=== PATIENT | male | born 2000 | race Two or more races ===

== ENCOUNTER 2023-08-02 06:51 | Day surgery (SDC) | payer MEDICAID, SELFPAY ==
[2023-08-02] VITALS (9 sets, daily range): BP systolic 123–151; BP diastolic 61–85; PULSE 64–83; RESP 16; TEMP 36.7–36.9; O2SAT 98–100; BMI 21.6
--- OUTSIDE RECORDS SUMMARY | 2023-08-02 07:00 | XMS RPT_ITS | CCD ---
Author Name Unknown Address [address] [place] [address] Organization [facility] Care Team Providers Care Signwriter Name Role Phone Unavailable Primary Care Provider Lanny MCGOVERNAREDEEPAK TRUJILLO, [facility] Primary Care Physician DRU DANIELLE Attending Lanny SORENSEN PA-C, [facility] Primary Care Unavailab Amador TRUJILLO, [facility] Primary Care Unavailab Arron EVERETT, DAILY Attending Unavailable MAIKEL EVERETT, DAILY Attending Unavailable EDU TRUJILLO, [facility] Primary Care Danika Heller MD, DAILY Consulting Unavailable OMAR GRANDA Attending Unavailable FROILANAREDEEPAK TRUJILLO, [facility] Primary Care Unavailab le Medications Current Medications Medication Drug Class(es) Dates Sig (Normalized) Sig (Original) acetaminophen 325 mg / oxyCODONE hydrochloride 5 mg oral tablet (2 sources) Opioid Agonist Start: 05-31-2023 take 1 tablet by mouth every six hours as needed for pain acetaminophen-oxy CODONE 325 mg-5 mg oral tablet TAKE 1 TABLET BY MOUTH EVERY 6 HOURS NEEDED FOR PAIN FOR 3 DAYS Start Date: 05/31/23 Status: Ordered Problems Problem Classification Problem Date Documented Date Episodic/Chronic Abdominal pain (2 sources) Abdominal pain 05-28-2023 Episodic Biliary tract disease (3 sources) Calculus of bile duct; Translations: [Calculus of bile duct without cholangitis or cholecystitis without obstruction] Onset: 05-25-2023 Episodic Results Test Name Value Interpretation Reference Range Facil ity Vital Signs Date Time Vital Sign Value Performing Clinician Sajan lara 07-08-2023 13:16-0500 Body height 177.8 cm DAILY KO MD [facility] 07-08-2023 13:16-0500 Body weight 70.5 kg DAILY KO MD [facility] 05-25-2023 14:38-0500 Diastolic Blood Pressure Non-Invasive 78 mm[Hg] DR OMAR GRANDA MD [facility] 05-25-2023 14:38-0500 Heart rate 78 /min DR OMAR GRANDA MD [facility] 05-25-2023 14:38-0500 Respiratory rate 20 /min DR OMAR GRANDA MD [facility] 05-25-2023 14:38-0500 Systolic Blood Pressure Non-Invasive 142 mm[Hg] DR OMAR GRANDA MD [facility] 05-25-2023 10:19-0500 Body height 165.[address] OMAR GRANDA MD [facility] 05-25-2023 10:19-0500 Body temperature 98.42 [degF] DR OMAR GRANDA MD [facility] 05-25-2023 10:19-0500 Body weight 77.[address] OMAR GRANDA MD [facility] 05-25-2023 10:19-0500 Diastolic Blood Pressure Non-Invasive 95 mm[Hg] DR OMAR GRANDA MD [facility] 05-25-2023 10:19-0500 Heart rate 112 /min DR OMAR GRANDA MD [facility] 05-25-2023 10:19-0500 Respiratory rate 20 /min DR OMAR GRANDA MD [facility] 05-25-2023 10:19-0500 Systolic Blood Pressure Non-Invasive 138 mm[Hg] DR OMAR GRANDA MD [facility] Encounters Encounter Date Encounter Type Care Provider Facility Start: 07-09-2023 ambulatory RYAN Larson acility:B Start: 07-08-2023 End: 07-09-2023 ambulatory DAILY KO MD Facility:B Start: 07-08-2023 End: 07-08-2023 Admission to establishment DAILY KO MD [facility] Start: 06-08-2023 End: 06-09-2023 ambulatory 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 Facility:B Start: 06-08-2023 End: 06-08-2023 Patient encounter procedure 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 [facility] Start: 05-25-2023 End: 05-25-2023 Emergency department patient visit DAILY KO MD Facility:B Start: 05-25-2023 End: 05-25-2023 Emergency department patient visit DR OMAR GRANDA MD [facility] Start: 04-22-2020 End: 04-22-2020 Telephone encounter Chloe Zimmerman Work Phone: [facility] Procedures Date Procedure Procedure Detail Performing Clinician Inguinal hernia (disorder) D R OMAR GRANDA MD Immunizations Immunization Date Immunization Notes Care Provider Fa cili 02-06-2021 SARS-CoV-2 (COVID-19 ) [id number] OMAR GRANDA MD [facility] Payers Date Payer Category Payer Self-pay 2023 Unknown [id number] 2002 Unknown [id number] 2002 Unknown [id number] 2002 Unknown [id number] 2002 Unknown [id number] Social History Date Type Detail Facility Tobacco smoking stat [facility] Unknown if ever smoked [facility] Sex Assigned At Not on file [facility] Start: 01-22-2023 End: 06-17-2023 Tobacco smoking status Never smoked tobacco (finding) [facility] Sex Assigned At Male [facility] Functional Status Date Assessment Result Facility 07-08-2023 Functional Status Sensory Deficits None A [facility] 05-25-2023 Functional Status Independent [facility] 05-25-2023 Functional Status Standard Safet y ID band on, Call device within reach, Bed in low position, Wheels locked [facility] Mental Status Date Assessment Result Facility 05-25-2023 Mental Status Orientation Oriented x 4 [facility] Clinical Note 06-08-2023 Note Date & Type Note Facility 06-08-2023 Note ORIGINAL EXAMINATION: HIDA108/09/2022 12:38 pm TECHNIQUE: Approximately 3.9 millicuries Tc99m Mebrofenin was administered IV. Then, dynamic images of the abdomen were obtained in the anterior projection for 60 mins. Slow infusion of 1.4 mcg cholecystokinin was administered intravenously over 30 mins. Images were obtained in the anterior projection and regions of interest were drawn around the gallbladder and ejection fraction was calculated. COMPARISON: Ultrasound abdomen 05/25/2023 HISTORY: ORDERING SYSTEM PROVIDED HISTORY: Reason for Exam: ruq/epigastric pain with nausea x4 weeks. Pain is worse after eating. FINDINGS: Prompt, homogenous uptake by the liver is noted with normal appearance of radiotracer excretion into the biliary system. Clearance of blood pool activity appears appropriate. Gallbladder and small bowel are visualized in appropriate sequence and time. Gallbladder ejection fraction is 30%. Normal value is >35% for CCK protocol. IMPRESSION: 1. Abnormal gallbladder ejection fraction of 30 % could be seen with biliary dyskinesia or chronic cholecystitis. 2. Satisfactory hepatocellular function and patency of the cystic and common ducts. I have personally reviewed the images of this examination and agree with the resident's finding and interpretation. Interpreted by: Chelsy Benson Preliminary Report By: Nicci Monk Electronically signed By Chelsy Benson Dictated Date: 06/08/2023 1:51:16 PM Prelim Date: 06/08/2023 5:48:59 PM Sign Date: 06/08/2023 5:48:59 PM Ordering Provider: [facility] Discharge instructions 05-25-2023 Note Date & Type Note Facility 05-25-2023 Hospital Discharg e instructions Patient Education 05/25/2023 14:33:25 Diet, Marin (Adult) Marin Diet Your healthcare provider may recommend a bland diet if you have an upset stomach. It consists of foods that are mild and easy to digest. It is better to eat small frequent meals rather than 3 large meals a day. Beverages OK: Fruit juices, non-caffeinated teas and coffee, non-carbonated luz Avoid: Carbonated beverage, caffeinated tea and coffee, all alcoholic beverages Bread OK: Refined white, wheat or rye bread, salvador or soda crackers, [place] toast, plain rolls, bagels Avoid: Whole-grain bread Cereal OK: Refined cereals: cooked or ready to eat Avoid: Whole-grain cereals and granola, or those containing bran, seeds or nuts Desserts OK: Peanut butter and all others except those to avoid Avoid: Chocolate, cocoa, coconut, popcorn, nuts, seeds, jam, marmalade Fruits OK: Canned, cooked, frozen or fresh fruits without seeds or tough skin Avoid: Olives, skin and seeds of fruit, dried fruit Meats OK: All fresh or preserved meat, fish and fowl Avoid: Any that are prepared with those spices to avoid Cheese and eggs OK: Eggs, cottage cheese, cream cheese, other cheeses Avoid: All cheeses made with those spices to avoid Potatoes and pasta OK: Potato, rice, macaroni, noodles, spaghetti Avoid: None Soups OK: All soups without heavy seasoning Avoid: Soups made with those spices to avoid Vegetables OK: Canned, cooked, fresh or frozen mildly flavored vegetables without seeds, skins or coarse fiber Avoid: Vegetables prepared with those spices to avoid ; skin and seeds of vegetables and those with coarse fiber, broccoli, cabbage, cauliflower, cucumber, green peppers, and corn Spices OK: Salt, lemon and limejuice, vinegar, all extracts, prasanna, cinnamon, thyme, mace, allspice, paprika Avoid: [place] powder, cloves, pepper, seed spices, garlic, gravy pickles, highly seasoned salad dressings [phone] [employer]. [address] [place] [address]. All rights reserved. This information is not intended as a substitute for professional medical care. Always follow your healthcare professional's instructions. 05/25/2023 14:32:53 Diet, Marin (Adult) Marin Diet Your healthcare provider may recommend a bland diet if you have an upset stomach. It consists of foods that are mild and easy to digest. It is better to eat small frequent meals rather than 3 large meals a day. Beverages OK: Fruit juices, non-caffeinated teas and coffee, non-carbonated luz Avoid: Carbonated beverage, caffeinated tea and coffee, all alcoholic beverages Bread OK: Refined white, wheat or rye bread, salvador or soda crackers, [place] toast, plain rolls, bagels Avoid: Whole-grain bread Cereal OK: Refined cereals: cooked or ready to eat Avoid: Whole-grain cereals and granola, or those containing bran, seeds or nuts Desserts OK: Peanut butter and all others except those to avoid Avoid: Chocolate, cocoa, coconut, popcorn, nuts, seeds, jam, marmalade Fruits OK: Canned, cooked, frozen or fresh fruits without seeds or tough skin Avoid: Olives, skin and seeds of fruit, dried fruit Meats OK: All fresh or preserved meat, fish and fowl Avoid: Any that are prepared with those spices to avoid Cheese and eggs OK: Eggs, cottage cheese, cream cheese, other cheeses Avoid: All cheeses made with those spices to avoid Potatoes and pasta OK: Potato, rice, macaroni, noodles, spaghetti Avoid: None Soups OK: All soups without heavy seasoning Avoid: Soups made with those spices to avoid Vegetables OK: Canned, cooked, fresh or frozen mildly flavored vegetables without seeds, skins or coarse fiber Avoid: Vegetables prepared with those spices to avoid ; skin and seeds of vegetables and those with coarse fiber, broccoli, cabbage, cauliflower, cucumber, green peppers, and corn Spices OK: Salt, lemon and limejuice, vinegar, all extracts, prasanna, cinnamon, thyme, mace, allspice, paprika Avoid: [place] powder, cloves, pepper, seed spices, garlic, gravy pickles, highly seasoned salad dressings [phone] [employer] [place] [address]. All rights reserved. This information is not intended as a substitute for professional medical care. Always follow your healthcare professional's instructions. 05/25/2023 14:31:25 Gallstones with Biliary Colic Gallstones with Biliary Colic Your abdominal pain due to irritation and spasm of the gallbladder. This is called biliary colic. The gallbladder is a small sac under the liver, which stores and releases a bile. Bile is a fluid made in the liver that aids in the digestion of fat. A collection of crystals may form stones inside the gallbladder (gallstones). Gallstones can cause the gallbladder to spasm. If they block the duct out of the gallbladder, they can cause pain and even an infection. A number of factors increase the risk for having gallstones: Being female Being severely overweight (obese) Older age Losing or gaining weight quickly Eating a high-calorie diet Being Taking hormone therapy Having diabetes Home care Rest in bed. Drink only clear liquids until you feel better. You may have been prescribed medicine for pain or nausea. Take these as directed. Fat in your diet makes the gallbladder contract and may cause increased pain. Don't eat foods that are high in fat (such as full-fat dairy, fried foods, and fatty meats) for at least 2 days. If you are overweight, talk to your healthcare provider about losing weight. Follow-up care Follow up with your healthcare provider or as advised. There is a chance that you will have another episode of pain from your gallstones at some point. Removal of the gallbladder is an option to prevent this. Talk with your healthcare provider about your treatment options. When to seek medical advice Call your healthcare provider if any of the following occur: Worsening pain or pain lasting for longer than 6 hours Pain moving to the right lower belly Repeated vomiting Swollen belly Fever of 100.4 F (38 C) or higher, or as directed by your healthcare provider Very dark urine, light colored stools, or yellow color of the skin or eyes Chest, arm, back, neck or jaw pain [phone] [employer] [address] [place] [address]. All rights reserved. This information is not intended as a substitute for professional medical care. Always follow your healthcare professional's instructions. Follow Up Care 05/25/2023 10:10:49 With:DAILY KO Address: [address] [place] [phone] Business (1) When:05/27/2023 13:00:00 With:RYAN SORENSEN PA-C Address: [address] [place] [phone] When:2-4 days [facility] Clinical Note 05-25-2023 Note Date & Type Note Facility 05-25-2023 Note Discharge Instructions Thank you for allowing [facility] to assist you with your healthcare needs. The following is important discharge information regarding your hospital visit. Diagnosis from Today's Visit Abdominal pain Biliary colic What to Do Next Instructions from Your Care Team No qualifying data available. Post Acute Orders No qualifying data available. You Need to Schedule the Following Appointments Follow Up with DAILY KO When 05/27/2023 01:00 PM EST Where: [address] [place] [phone] Business (1) Follow Up with RYAN SORENSEN PA-C When Within 2-4 days Where: [address] [place] [id number] [phone] Allergies No Known Medication Allergies Medications Please ask your primary doctor or pharmacist before taking any other medication not listed, including over the counter drugs, herbal medications, vitamins and or supplements as they may interact with your home medications. What How Much When Why Instructions Last Dose New acetaminophen-oxyCODONE (Percocet 5 mg-325 mg oral tablet) 1 tab(s) by mouth Every 6 hours as needed for for pain Biliary colic Duration: 3 Days Printed Prescription New ondansetron (ondansetron 4 mg oral tablet, disintegrating) 1 tab(s) by mouth Every 6 hours Duration: 3 Days Printed Prescription Please take this list to your next doctor s visit. Bring all medications you take, including over the counter medications, herbals and other supplements with you to your doctor s visit. Patients and families are reminded to discard old lists and to update any records with all medication providers or retail pharmacies. Medication Leaflets acetaminophen and oxycodone (a SEET a MIN oh fen and OX i KOE done) Endocet 10/325, Endocet 2.5/325, Endocet 5/325, Endocet 7.5/325, Nalocet, Percocet, Prolate What is the most important information I should know about acetaminophen and oxycodone? MISUSE OF OPIOID MEDICINE CAN CAUSE ADDICTION, OVERDOSE, OR . Keep the medication in a place where others cannot get to it. Taking opioid medicine during may cause life-threatening withdrawal symptoms in the . Fatal side effects can occur if you use opioid medicine with alcohol, or with other drugs that cause drowsiness or slow your breathing. Stop taking this medicine and call your doctor right away if you have skin redness or a rash that spreads and causes blistering and peeling. What is acetaminophen and oxycodone? Acetaminophen and oxycodone is a combination medicine used to relieve moderate to severe pain. Acetaminophen and oxycodone contains an opioide medicine and may be habit-forming. Acetaminophen and oxycodone may also be used for purposes not listed in this medication guide. What should I discuss with my healthcare provider before taking acetaminophen and oxycodone? You should not use this medicine if you are allergic to acetaminophen or oxycodone, or if you have: severe asthma or breathing problems; or a blockage in your stomach or intestines. Tell your doctor if you have ever had: breathing problems, sleep apnea; liver disease; a drug or alcohol addiction; kidney disease; a head injury or seizures; urination problems; or problems with your thyroid, pancreas, or gallbladder. If you use opioid medicine while you are , your baby could become dependent on the drug. This can cause life-threatening withdrawal symptoms in the baby after it is born. Babies born dependent on opioids may need medical treatment for several weeks. Ask a doctor before using opioid medicine if you are . Tell your doctor if you notice severe drowsiness or slow breathing in the nursing baby. How should I take acetaminophen and oxycodone? Follow all directions on your prescription label. Never take this medicine in larger amounts, or for longer than prescribed. An overdose can damage your liver or cause . Tell your doctor if you feel an increased urge to use more of this medicine. Never share opioid medicine with another person, especially someone with a history of drug abuse or addiction. MISUSE CAN CAUSE ADDICTION, OVERDOSE, OR . Keep the medicine in a place where others cannot get to it. Selling or giving away opioid medicine is against the law. Measure liquid medicine carefully. Use the dosing syringe provided, or use a medicine dose-measuring device (not a kitchen spoon). If you need surgery or medical tests, tell the doctor ahead of time that you are using this medicine. You should not stop using this medicine suddenly. Follow your doctor's instructions about tapering your dose. Store at room temperature away from moisture and heat. Keep track of your medicine. You should be aware if anyone is using it improperly or without a prescription. Do not keep leftover opioid medication. Just one dose can cause in someone using this medicine accidentally or improperly. Ask your pharmacist where to locate a drug take-back disposal program. If there is no take-back program, flush the unused medicine down the toilet. What happens if I miss a dose? Since this medicine is used for pain, you are not likely to miss a dose. Skip any missed dose if it is almost time for your next dose. Do not use two doses at one time. What happens if I overdose? Seek emergency medical attention or call the Poison Help line at . An overdose of this medicine can be fatal, especially in a child or other person using the medicine without a prescription. Overdose symptoms may include nausea, vomiting, sweating, severe drowsiness, pinpoint pupils, slow breathing, or no breathing. Your doctor may recommend you get naloxone (a medicine to reverse an opioid overdose) and keep it with you at all times. A person caring for you can give the naloxone if you stop breathing or don't wake up. Your caregiver must still get emergency medical help and may need to perform CPR (cardiopulmonary resuscitation) on you while waiting for help to arrive. Anyone can buy naloxone from a pharmacy or local health department. Make sure any person caring for you knows where you keep naloxone and how to use it. What should I avoid while taking acetaminophen and oxycodone? Avoid driving or operating machinery until you know how this medicine will affect you. Dizziness or drowsiness can cause falls, accidents, or severe injuries. Do not drink alcohol. Dangerous side effects or could occur. Ask a doctor or pharmacist before using any other medicine that may contain acetaminophen (sometimes abbreviated as APAP). Taking certain medications together can lead to a fatal overdose. What are the possible side effects of acetaminophen and oxycodone? Get emergency medical help if you have signs of an allergic reaction: hives; difficulty breathing; swelling of your face, lips, tongue, or throat. Opioid medicine can slow or stop your breathing, and may occur. A person caring for you should give naloxone and/or seek emergency medical attention if you have slow breathing with long pauses, blue colored lips, or if you are hard to wake up. In rare cases, acetaminophen may cause a severe skin reaction that can be fatal. This could occur even if you have taken acetaminophen in the past and had no reaction. Stop taking this medicine and call your doctor right away if you have skin redness or a rash that spreads and causes blistering and peeling. Call your doctor at once if you have: noisy breathing, sighing, shallow breathing, breathing that stops; a light-headed feeling, like you might pass out; weakness, tiredness, fever, unusual bruising or bleeding; confusion, unusual thoughts or behavior; problems with urination; liver problems--nausea, upper stomach pain, tiredness, loss of appetite, dark urine, arben-colored stools, jaundice (yellowing of the skin or eyes); low cortisol levels-- nausea, vomiting, loss of appetite, dizziness, worsening tiredness or weakness; or high levels of serotonin in the body--agitation, hallucinations, fever, sweating, shivering, fast heart rate, muscle stiffness, twitching, loss of coordination, nausea, vomiting, diarrhea. Serious breathing problems may be more likely in older adults and in those who are debilitated or have wasting syndrome or chronic breathing disorders. Common side effects include: dizziness, drowsiness, feeling tired; feelings of extreme happiness or sadness; nausea, vomiting, stomach pain; constipation; or headache. This is not a complete list of side effects and others may occur. Call your doctor for medical advice about side effects. You may report side effects to FDA at 0-064-CYT-7876. What other drugs will affect acetaminophen and oxycodone? You may have breathing problems or withdrawal symptoms if you start or stop taking certain other medicines. Tell your doctor if you also use an antibiotic, antifungal medication, heart or blood pressure medication, seizure medication, or medicine to treat HIV or hepatitis C. Opioid medication can interact with many other drugs and cause dangerous side effects or . Be sure your doctor knows if you also use: cold or allergy medicines, bronchodilator asthma/COPD medication, or a diuretic ('water pill'); medicines for motion sickness, irritable bowel syndrome, or overactive bladder; other opioids--opioid pain medicine or prescription cough medicine; a sedative like Valium--diazepam, alprazolam, lorazepam, Xanax, Klonopin, Versed, and others; drugs that make you sleepy or slow your breathing--a sleeping pill, muscle relaxer, medicine to treat mood disorders or mental illness; drugs that affect serotonin levels in your body--a stimulant, or medicine for depression, Parkinson's disease, migraine headaches, serious infections, or nausea and vomiting. This list is not complete. Other drugs may affect acetaminophen and oxycodone, including prescription and tfco-ieq-xqekrew medicines, vitamins, and herbal products. Not all possible interactions are listed here. Where can I get more information? Your doctor or pharmacist can provide more information about acetaminophen and oxycodone. Remember, keep this and all other medicines out of the reach of children, never share your medicines with others, and use this medication only for the indication prescribed. Every effort has been made to ensure that the information provided by [employer]') is accurate, up-to-date, and complete, but no guarantee is made to that effect. Drug information contained herein may be time sensitive. R2G information has been compiled for use by healthcare practitioners and consumers in the [place] and therefore [employer] does not warrant that uses outside of the [place] are appropriate, unless specifically indicated otherwise. [employer] drug information does not endorse drugs, diagnose patients or recommend therapy. [employer] drug information is an informational resource designed to assist licensed healthcare practitioners in caring for their patients and/or to serve consumers viewing this service as a supplement to, and not a substitute for, the expertise, skill, knowledge and judgment of healthcare practitioners. The absence of a warning for a given drug or drug combination in no way should be construed to indicate that the drug or drug combination is safe, effective or appropriate for any given patient. [employer] does not assume any responsibility for any aspect of healthcare administered with the aid of information [employer] provides. The information contained herein is not intended to cover all possible uses, directions, precautions, warnings, drug interactions, allergic reactions, or adverse effects. If you have questions about the drugs you are taking, check with your doctor, nurse or pharmacist. Copyright 5368-4236 Transfer [employer]. Version: 22.. Revision Date: 01/14/2023. ondansetron (oral) (on DANO se dickson) What is the most important information I should know about ondansetron? You should not use ondansetron if you are also using apomorphine (Apokyn). What is ondansetron? Ondansetron blocks the actions of chemicals in the body that can trigger nausea and vomiting. Ondansetron is used to prevent nausea and vomiting that may be caused by surgery, cancer chemotherapy, or radiation treatment. Ondansetron may be used for purposes not listed in this medication guide. What should I discuss with my health care provider before taking ondansetron? You should not use ondansetron if: you are also using apomorphine (Apokyn); or you are allergic to ondansetron or similar medicines (dolasetron, granisetron, palonosetron). To make sure ondansetron is safe for you, tell your doctor if you have: liver disease; an electrolyte imbalance (such as low levels of potassium or magnesium in your blood); congestive heart failure, slow heartbeats; a personal or family history of long QT syndrome; or a blockage in your digestive tract (stomach or intestines). Ondansetron is not expected to harm an unborn baby. Tell your doctor if you are . It is not known whether ondansetron passes into breast milk or if it could harm a nursing baby. Tell your doctor if you are breast-feeding a baby. Ondansetron is not approved for use by anyone younger than 4 years old. Ondansetron orally disintegrating tablets may contain phenylalanine. Tell your doctor if you have phenylketonuria (PKU). How should I take ondansetron? Follow all directions on your prescription label. Do not take this medicine in larger or smaller amounts or for longer than recommended. Ondansetron can be taken with or without food. The first dose of ondansetron is usually taken before the start of your surgery, chemotherapy, or radiation treatment. Follow your doctor's dosing instructions very carefully. Take the ondansetron regular tablet with a full glass of water. To take the orally disintegrating tablet (Zofran ODT): Keep the tablet in its blister pack until you are ready to take it. Open the package and peel back the foil. Do not push a tablet through the foil or you may damage the tablet. Use dry hands to remove the tablet and place it in your mouth. Do not swallow the tablet whole. Allow it to dissolve in your mouth without chewing. Swallow several times as the tablet dissolves. To use ondansetron oral soluble film (strip) (Zuplenz): Keep the strip in the foil pouch until you are ready to use the medicine. Using dry hands, remove the strip and place it on your tongue. It will begin to dissolve right away. Do not swallow the strip whole. Allow it to dissolve in your mouth without chewing. Swallow several times after the strip dissolves. If desired, you may drink liquid to help swallow the dissolved strip. Wash your hands after using Zuplenz. Measure liquid medicine with the dosing syringe provided, or with a special dose-measuring spoon or medicine cup. If you do not have a dose-measuring device, ask your pharmacist for one. Store at room temperature away from moisture, heat, and light. Store liquid medicine in an upright position. What happens if I miss a dose? Take the missed dose as soon as you remember. Skip the missed dose if it is almost time for your next scheduled dose. Do not take extra medicine to make up the missed dose. What happens if I overdose? Seek emergency medical attention or call the Poison Help line at . Overdose symptoms may include sudden loss of vision, severe constipation, feeling light-headed, or fainting. What should I avoid while taking ondansetron? Ondansetron may impair your thinking or reactions. Be careful if you drive or do anything that requires you to be alert. What are the possible side effects of ondansetron? Get emergency medical help if you have signs of an allergic reaction: rash, hives; fever, chills, difficult breathing; swelling of your face, lips, tongue, or throat. Call your doctor at once if you have: severe constipation, stomach pain, or bloating; headache with chest pain and severe dizziness, fainting, fast or pounding heartbeats; fast or pounding heartbeats; jaundice (yellowing of the skin or eyes); blurred vision or temporary vision loss (lasting from only a few minutes to several hours); high levels of serotonin in the body--agitation, hallucinations, fever, fast heart rate, overactive reflexes, nausea, vomiting, diarrhea, loss of coordination, fainting. Common side effects may include: diarrhea or constipation; headache; drowsiness; or tired feeling. This is not a complete list of side effects and others may occur. Call your doctor for medical advice about side effects. You may report side effects to FDA at 2-827-MMT-0976. What other drugs will affect ondansetron? Ondansetron can cause a serious heart problem, especially if you use certain medicines at the same time, including antibiotics, antidepressants, heart rhythm medicine, antipsychotic medicines, and medicines to treat cancer, malaria, HIV or AIDS. Tell your doctor about all medicines you use, and those you start or stop using during your treatment with ondansetron. Taking ondansetron while you are using certain other medicines can cause high levels of serotonin to build up in your body, a condition called 'serotonin syndrome,' which can be fatal. Tell your doctor if you also use: medicine to treat depression; medicine to treat a psychiatric disorder; a narcotic (opioid) medication; or medicine to prevent nausea and vomiting. This list is not complete and many other drugs can interact with ondansetron. This includes prescription and [id number]-uhdszkp medicines, vitamins, and herbal products. Give a list of all your medicines to any healthcare provider who treats you. Where can I get more information? Your pharmacist can provide more information about ondansetron. Remember, keep this and all other medicines out of the reach of children, never share your medicines with others, and use this medication only for the indication prescribed. Every effort has been made to ensure that the information provided by [employer]. ('[employer]') is accurate, up-to-date, and complete, but no guarantee is made to that effect. Drug information contained herein may be time sensitive. [employer] information has been compiled for use by healthcare practitioners and consumers in the [place] and therefore [employer] does not warrant that uses outside of the [place] are appropriate, unless specifically indicated otherwise. [employer] drug information does not endorse drugs, diagnose patients or recommend therapy. [employer] drug information is an informational resource designed to assist licensed healthcare practitioners in caring for their patients and/or to serve consumers viewing this service as a supplement to, and not a substitute for, the expertise, skill, knowledge and judgment of healthcare practitioners. The absence of a warning for a given drug or drug combination in no way should be construed to indicate that the drug or drug combination is safe, effective or appropriate for any given patient. [employer] does not assume any responsibility for any aspect of healthcare administered with the aid of information [employer] provides. The information contained herein is not intended to cover all possible uses, directions, precautions, warnings, drug interactions, allergic reactions, or adverse effects. If you have questions about the drugs you are taking, check with your doctor, nurse or pharmacist. Copyright 5893-8656 Transfer [employer]. Version: 16.. Revision Date: 01/14/2023. Education Materials [place] Diet Your healthcare provider may recommend a bland diet if you have an upset stomach. It consists of foods that are mild and easy to digest. It is better to eat small frequent meals rather than 3 large meals a day. Beverages OK: Fruit juices, non-caffeinated teas and coffee, non-carbonated luz Avoid: Carbonated beverage, caffeinated tea and coffee, all alcoholic beverages Bread OK: Refined white, wheat or rye bread, salvador or soda crackers, Viri toast, plain rolls, bagels Avoid: Whole-grain bread Cereal OK: Refined cereals: cooked or ready to eat Avoid: Whole-grain cereals and granola, or those containing bran, seeds or nuts Desserts OK: Peanut butter and all others except those to avoid Avoid: Chocolate, cocoa, coconut, popcorn, nuts, seeds, jam, marmalade Fruits OK: Canned, cooked, frozen or fresh fruits without seeds or tough skin Avoid: Olives, skin and seeds of fruit, dried fruit Meats OK: All fresh or preserved meat, fish and fowl Avoid: Any that are prepared with those spices to avoid Cheese and eggs OK: Eggs, cottage cheese, cream cheese, other cheeses Avoid: All cheeses made with those spices to avoid Potatoes and pasta OK: Potato, rice, macaroni, noodles, spaghetti Avoid: None Soups OK: All soups without heavy seasoning Avoid: Soups made with those spices to avoid Vegetables OK: Canned, cooked, fresh or frozen mildly flavored vegetables without seeds, skins or coarse fiber Avoid: Vegetables prepared with those spices to avoid ; skin and seeds of vegetables and those with coarse fiber, broccoli, cabbage, cauliflower, cucumber, green peppers, and corn Spices OK: Salt, lemon and limejuice, vinegar, all extracts, prasanna, cinnamon, thyme, mace, allspice, paprika Avoid: Hornsby powder, cloves, pepper, seed spices, garlic, gravy pickles, highly seasoned salad dressings 8512-[address] [employer] [place] [address]. All rights reserved. This information is not intended as a substitute for professional medical care. Always follow your healthcare professional's instructions. [place] Diet Your healthcare provider may recommend a bland diet if you have an upset stomach. It consists of foods that are mild and easy to digest. It is better to eat small frequent meals rather than 3 large meals a day. Beverages OK: Fruit juices, non-caffeinated teas and coffee, non-carbonated luz Avoid: Carbonated beverage, caffeinated tea and coffee, all alcoholic beverages Bread OK: Refined white, wheat or rye bread, salvador or soda crackers, Viri toast, plain rolls, bagels Avoid: Whole-grain bread Cereal OK: Refined cereals: cooked or ready to eat Avoid: Whole-grain cereals and granola, or those containing bran, seeds or nuts Desserts OK: Peanut butter and all others except those to avoid Avoid: Chocolate, cocoa, coconut, popcorn, nuts, seeds, jam, marmalade Fruits OK: Canned, cooked, frozen or fresh fruits without seeds or tough skin Avoid: Olives, skin and seeds of fruit, dried fruit Meats OK: All fresh or preserved meat, fish and fowl Avoid: Any that are prepared with those spices to avoid Cheese and eggs OK: Eggs, cottage cheese, cream cheese, other cheeses Avoid: All cheeses made with those spices to avoid Potatoes and pasta OK: Potato, rice, macaroni, noodles, spaghetti Avoid: None Soups OK: All soups without heavy seasoning Avoid: Soups made with those spices to avoid Vegetables OK: Canned, cooked, fresh or frozen mildly flavored vegetables without seeds, skins or coarse fiber Avoid: Vegetables prepared with those spices to avoid ; skin and seeds of vegetables and those with coarse fiber, broccoli, cabbage, cauliflower, cucumber, green peppers, and corn Spices OK: Salt, lemon and limejuice, vinegar, all extracts, prasanna, cinnamon, thyme, mace, allspice, paprika Avoid: Hornsby powder, cloves, pepper, seed spices, garlic, gravy pickles, highly seasoned salad dressings [phone] [employer] [place] [address], [place] [address]. All rights reserved. This information is not intended as a substitute for professional medical care. Always follow your healthcare professional's instructions. Gallstones with Biliary Colic Your abdominal pain due to irritation and spasm of the gallbladder. This is called biliary colic. The gallbladder is a small sac under the liver, which stores and releases a bile. Bile is a fluid made in the liver that aids in the digestion of fat. A collection of crystals may form stones inside the gallbladder (gallstones). Gallstones can cause the gallbladder to spasm. If they block the duct out of the gallbladder, they can cause pain and even an infection. A number of factors increase the risk for having gallstones: Being female Being severely overweight (obese) Older age Losing or gaining weight quickly Eating a high-calorie diet Being Taking hormone therapy Having diabetes Home care Rest in bed. Drink only clear liquids until you feel better. You may have been prescribed medicine for pain or nausea. Take these as directed. Fat in your diet makes the gallbladder contract and may cause increased pain. Don't eat foods that are high in fat (such as full-fat dairy, fried foods, and fatty meats) for at least 2 days. If you are overweight, talk to your healthcare provider about losing weight. Follow-up care Follow up with your healthcare provider or as advised. There is a chance that you will have another episode of pain from your gallstones at some point. Removal of the gallbladder is an option to prevent this. Talk with your healthcare provider about your treatment options. When to seek medical advice Call your healthcare provider if any of the following occur: Worsening pain or pain lasting for longer than 6 hours Pain moving to the right lower belly Repeated vomiting Swollen belly Fever of 100.4 F (38 C) or higher, or as directed by your healthcare provider Very dark urine, light colored stools, or yellow color of the skin or eyes Chest, arm, back, neck or jaw pain [id number] The [employer]. [address] [place] [address]. All rights reserved. This information is not intended as a substitute for professional medical care. Always follow your healthcare professional's instructions. Additional Information VACCINATE! IT SAVES LIVES! Members of the community who have not yet received the COVID-19 vaccine and would like to receive it can visit one of [facility] vaccine clinics. There are many vaccine clinic locations within the [facility]. For locations and available times, please visit [email or web address] It is important to note that some COVID mobile vaccine clinics are held outdoors and may be canceled in rainy or stormy conditions. To learn more about pediatric vaccinations (ages 5-11), we invite you to visit the [facility] webpage. [email or web address] -[email or web address] To learn more about the COVID-19 vaccine, we invite you to visit the CDC website for a list of frequently asked questions. https://www.cdc.gov/coronavirus/2019-n cov/vaccines/faq.html [facility] Patient Portal Access Instructions: Stay connected with your healthcare team and access your personal medical information anytime with the [facility] Patient Portal. If you would like a full copy of your medical records please contact the [facility] Medical Records Department Wednesday through Wednesday between 8a.m. and 4:30p.m. Please follow the directions below to access the portal: 1.Access the email account you provided upon registration to the [facility].2.Look for an invitation email from [facility].3.Open the email and access the invitation link: Accept Invitation to [facility]4.Fill in the required palomares to create your account. Sign into www.[employer] with your username and password that you created in the above steps to stay up to date. You can then view a summary of results, a summary of your visits, and the ability to download your summaries to your computer or send the information securely to a physician. Remember that your healthcare information is confidential, so carefully consider who you will allow to register on the [facility] Patient Portal for access to your information. You can also access the [facility] Patient Portal on the [employer]. Simply click on Health Records under Health Data and then click on the [employer] logo. HOW TO SAFELY DISPOSE OF PRESCRIPTION MEDICATIONS Please use one of the following methods to safely dispose of your unused medications. 1.Use a drug disposal kit: the drug disposal pouch allows you to safely discard your old and unused drugs. Ask your nurse to give you one when you are discharged.2.Visit a local take-back location: Many local pharmacies and police departments have programs that collect old and unwanted prescription drugs. Call your local pharmacy or go to http://bit.[employer]/0G7No0b to find one close to you.3.Make use of household items: Use cat litter or old coffee grounds to dispose medications if other options are not available. Mix your drugs with these household products, seal them in an airtight container and throw it into the garbage. Call [facility]: [phone] to be sure your drugs can be disposed of in this way. Some medicines may require a different approach.4.Never flush your medications down the toilet. IF YOU HAVE BEEN PRESCRIBED AN OPIOIDS FOR PAIN If you have been prescribed an opioid (such as hydrocodone, oxycodone or morphine), it is critical to understand the possible side effects and risks of opioid pain medications. Even when taken as directed, opioids can have several side effects including: Tolerance, meaning you might need to take more of a medication for the same pain relief. Nausea, vomiting and/or constipation. Sleepiness, dizziness, dry mouth, confusion, depression or itching. Physical dependence, meaning you have withdrawal symptoms when a medication is stopped ? this can develop within a few days. KNOW YOUR RESPONSIBILITIES It is important to know exactly how much and how often to take the opioid pain medications you are prescribed. Never take opioids in higher amounts or more often than prescribed. Do not combine opioids with alcohol or other drugs that cause drowsiness, such as benzodiazepines, also known as benzos, including diazepam and alprazolam, muscle relaxants or sleep aids. Never sell or share prescription opioids. This is illegal. Store opioids in a secure place and out of reach of others (including children, family, friends and visitors). The last page(s) of this document has been signed and retained as a CHART COPY Signatures Patient Education Materials Diet, Marin (Adult) Diet, Marin (Adult) Gallstones with Biliary Colic Medication Leaflets acetaminophen and oxycodone, ondansetron (oral) My discharge plan and instructions have been reviewed and explained to me and ILAUREN TRISTIN understand my current condition and have read and understand these discharge instructions. I have received a written copy of the plan/instructions. If I have questions, I am aware that I should contact my doctor. Patient/Retanner Signature: _ Date/Time: Relationship to Patient: Witness Name/Signature: Date/Time: [facility] Clinical Note 05-25-2023 Note Date & Type Note Facility 05-25-2023 Note ORIGINAL EXAMINATION: RIGHT UPPER QUADRANT ULTRASOUND 05/25/2023 1:02 pm COMPARISON: Same day CT abdomen/pelvis. HISTORY: ORDERING SYSTEM PROVIDED HISTORY: Reason for Exam: abdominal pain FINDINGS: LIVER: The liver demonstrates normal echogenicity without evidence of intrahepatic biliary ductal dilatation. BILIARY SYSTEM: Gallbladder is without evidence of wall thickening or stones. There is a heterogenous hypoechogenicity seen adjacent to the gallbladder measuring 2.7 x 0.6 x 2.1 cm. The heterogenous appearance is suggestive of complex pericholecystic fluid when correlated with CT. Negative sonographic Meyer's sign. Common bile duct is within normal limits measuring 4 mm. RIGHT KIDNEY: The right kidney is grossly unremarkable without evidence of hydronephrosis. PANCREAS: Visualized portions of the pancreas are unremarkable. Pancreatic head and tail are somewhat limited secondary to overlying bowel gas. OTHER: No evidence of right upper quadrant ascites. IMPRESSION: Complex appearing pericholecystic fluid without additional findings. If clinical symptoms persist consider HIDA scan with ejection fraction to evaluate for gallbladder dysfunction and chronic cholecystitis. Interpreted by: Devante Alcaraz MD Preliminary Report By: Devante Alcaraz MD Electronically signed By Devante Alcaraz MD Dictated Date: 05/25/2023 1:21:15 PM Prelim Date: 05/25/2023 1:28:56 PM Sign Date: 05/25/2023 1:28:56 PM Ordering Provider: OMAR GRANDA [facility] Clinical Note 05-25-2023 Note Date & Type Note Facility 05-25-2023 Note ORIGINAL EXAMINATION: CT OF THE ABDOMEN AND PELVIS WITH XAKZYPVK68/12/2023 12:05 pm TECHNIQUE: CT of the abdomen and pelvis was performed with the administration of intravenous contrast. Multiplanar reformatted images are provided for review. Automated exposure control, iterative reconstruction, and/or weight based adjustment of the mA/kV was utilized to reduce the radiation dose to as low as reasonably achievable. COMPARISON: None HISTORY: ORDERING SYSTEM PROVIDED HISTORY: Reason for Exam: pain FINDINGS: There is no evidence of pulmonary nodule or pleural effusion at the level of the lung bases. Low-attenuation changes in the liver are consistent with periportal edema. There is a small amount of pericholecystic fluid. No calcified gallstones are noted. There is no evidence of intra or extrahepatic biliary dilation. No focal hepatic lesion is seen. The pancreas, gallbladder, spleen, kidneys, abdominal aorta and urinary bladder have an unremarkable appearance. Prostate and seminal vesicles have an unremarkable appearance. Lack of oral contrast limits evaluation of the large and small bowel. There is no gross evidence of bowel obstruction. There is no evidence of free intraperitoneal fluid or air. There is very little intra-abdominal and pelvic fat but no gross inflammation is identified. The vermiform appendix is nondilated. There is no evidence of anterior abdominal wall hernia. Bone windows reveal no evidence of acute fracture or osteolytic/osteoblastic lesion. IMPRESSION: Mild periportal edema. Small amount of pericholecystic fluid. Right upper quadrant sonography may be helpful to exclude cholelithiasis and gallbladder wall thickening. There is no evidence of acute appendicitis. Interpreted by: Isaias Weinstein Preliminary Report By: Isaias Weinstein Electronically signed By Isaias Weinstein Dictated Date: 05/25/2023 12:07:04 PM Prelim Date: 05/25/2023 12:10:44 PM Sign Date: 05/25/2023 12:10:44 PM Ordering Provider: OMAR GRANDA [facility] Evaluation + Plan note Note Date & Type Note Facility Evaluation + Plan note No data available for this section [facility] Evaluation + Plan note Note Date & Type Note Facility Evaluation + Plan note Future Appointments Appointment Date:06/17/2023 03:40:00 PM Scheduled Provider:DAILY KO MD Location:[facility] Appointment Type:GS OV Check after Test [facility] Evaluation + Plan note Note Date & Type Note Facility Evaluation + Plan note Future Appointments Appointment Date:07/15/2023 01:00:00 PM Scheduled Provider:DAILY KO MD Location:[facility] Appointment Type:GS OV Pre Op [facility] Discharge instructions Note Date & Type Note Facility Hospital Discharge instructions No data available for this section [facility] Progress note Note Date & Type Note Facility Progress note No data available for this section [facility] Summary Purpose Family History No Family History Records FoundNo Family History Records Found No data available for this section No data available for this section No data available for this section No Family History Records Found Advance Directives No Advanced Directives Records FoundNo Advanced Directives Records FoundNo Advanced Directives Records Found Additional Source Comments (unrecognized sect ion and content) No Status Records FoundNo Status Records FoundNo Status Records Found INFORMATION SOURCE (unrecogn ized section and content) DATE CREATED AUTHOR AUTHOR'S ORGANIZ ATION 04/22/2020 [facility] DATE CREATED AUTHOR AUTHOR'S ORGANIZ ATION 07/10/2023 [facility] ([place]) Source Comments (unrecognize d section and content) In the event this informatio n is protected by the Federal Confidentiality of Alcohol and Drug Abuse Patient Records regulations: The Federal rules restrict any use of the information to criminally investigate or prosecute any alcohol or drug abuse patient.[facility] Reason for Visit (unrecogniz ed section and content) Telephone Encounter - Migdalia Dill - 04/22/2020 10:24 AM EST Miscellaneous Notes (unrecog nized section and content) Pt came into office requesting Covid testing. Pt was exposed to a friend over the last couple days who test positive. Pt was advised to self isolate since he has no symptoms currently. Migdalia Dill documented in this encounter Patient Care team informatio n (unrecognized section and content) Care Team Personnel Name: RYAN SORENSEN PA-C Position: P[employer] Matcher Member Role: Primary Care Physician Address: Address: [address] [place] [address] Name: CHRISTIAN Roibns Position: AO RN Member Role: ED RN Name: MD OMAR GRANDA MD Position: ED Physician Member Role: ED Physician Address: Address: [place] [id number] Care Team Personnel Name: RYAN SORENSEN PA-C Position: [employer] Matcher Member Role: Primary Care Physician Address: Address: [address] [place] [address] Care Team Related Persons Name: MALIHA BRYAN Care Team Personnel Name: RYAN SORENSEN PA-C Position: P[employer] Sounding Board Matcher Member Role: Primary Care Physician Address: Address: [address] [place] [address] Care Team Related Persons Name: MALIHA BRYAN FOR RECORDS PERTAINING TO PATIENTS WHO ARE OR HAVE BEEN ENROLLED IN A CHEMICAL DEPENDENCY/SUBSTANCEABUSE PROGRAM, SOME INFORMATION MAY BE OMITTED. This clinical summary was aggregated from multiple sources. Caution should be exercised in using it in the provision of clinical care. This summary normalizes information from multiple sources, and as a consequence, information in this document may materially change the coding, format and clinical context of patient data. In addition, data may be omitted in some cases. CLINICAL DECISIONS SHOULD BE BASED ON THE PRIMARY CLINICAL RECORDS. [facility] [employer] provides no warranty or guarantee of the accuracy or completeness of information in this document.
[2023-08-02] MEDS: Lactated Ringers 1,000 ML 15 ML IV (07:34)
--- NOTE | 2023-08-02 07:50 | EKG12_ITS ---
Test Reason : PREOP Blood Pressure : / mmHG Vent. Rate : 071 BPM Atrial Rate : 071 BPM P-R Int : 126 ms QRS Dur : 084 ms QT Int : 376 ms P-R-T Axes : 073 045 060 degrees QTc Int : 408 ms Normal sinus rhythm with sinus arrhythmia Septal infarct , age undetermined Abnormal ECG No previous ECGs available Confirmed by ZOIE EVERETT, DANA ([id number]), sound editor SHAGGY COOK ([id number]) on 08/03/2023 9:46:42 AM Referred By: Kushal Russo Confirmed By:DANA LINO MD
--- NOTE | 2023-08-02 08:03 | HP.PCM_ITS ---
History and Physical Date of Admission: 08/02/23 Intake Vital Signs 05/24/2315:59 07/21/2414:20 Height 5 ft 10.5 in 5 ft 10 in Weight: 151 lb BMI 21.7 BP 133/80 H Blood Pressure Location Rt brachial Position Sitting Respiration 17 Pulse 71 Pulse Source Monitor Pulse Oximetry (%) 100 Oxygen Delivery Method room air Intake Visit Reasons: Gall Bladder Issues Chief Complaint: gallbladder issues Is patient in pain?: Yes Allergies No Known Allergies Allergy (Verified 07/21/23 15:21) Medications NK 09/09/21 [History Confirmed 07/21/23] [facility] Medical History (Updated 07/21/23 @ 16:[address] Shoaib Schumacher MD) Abdominal pain Nausea Surgical History (Updated 09/09/21 @ 11:35 by Yoli Leigh RN) History of hernia surgery Social History (Updated 07/21/23 @ 15:19 by Renata Smith) Smoking Status: Never smoker alcohol intake: never substance use type: does not use HPI HPI HPI: Patient is a 22-year-old male for gallbladder. The patient had workup at [facility] and then changed his insurance and now they do not take his insurance so he is coming here for surgery. He reports he has pain about an hour after eating and last for about 2 hours it is in the right upper quadrant and he does have nausea and vomiting with these attacks. ROS General General: Yes weight change and fatigue; No appetite, colon cancer, breast cancer or weakness HEENT HEENT: No difficulty swallowing, eye injury, eye surgery, swollen glands or hoarseness Endo Endocrine: No thyroid disease, diabetes mellitus, thyroid cancer, Hair loss, heat intolerance or cold intolerance Skin Skin: No rash or changing moles Musc Musculoskeletal: No back problems, arthritis, rheumatoid arthritis, gout or joint pain Cardio Cardiovascular: No murmur, pacemaker, heart disease, atrial fibrillation, high blood pressure, heart attack, heart stent, palpitations, shortness of breat with exertion or chest pain Psych Psychiatric: No depression, anxiety or hearing voices Resp Respiratory: No shortness of breath, No sleep apnea, No cough, No COPD, No asthma, No emphysema and No wheezing Gastro Gastrointestinal: Yes abdominal pain, Yes nausea or vomiting, Yes diarrhea, Yes constipation, No blood in stool, No acid reflux, No hemorrhoids, No ulcers, Yes gallbladder problem and No black,tarry stools Julito Hematologic: No blood thinners, No blood disorders, No bleeding, No anemia and No blood clots Neuro Neurologic: No system reviewed and no additional complaints, except as do cumented, No as per HPI, No abnormal gait, No abnormal hearing, No abnormal movements, No abnormal speech, No behavioral changes, No burning sensations, No confusion, No convulsions, No disequilibrium, No dizziness, No localized weakness, No frequent falls, No headache(s), No lack of coordination, No loss of vision, No memory loss, No numbness, No other visual disturbances, No radicular pain, No restless legs, No sensory deficit, No syncope, No tingling, No tremor(s), No weakness and No other Exam Const General: cooperative Orientation: alert and oriented x3 HENMT Head: normal to inspection Neck Neck: normal visual inspection and full ROM Chest Chest palpation & inspection: normal inspection of the chest Resp Effort & Inspection: normal respiratory effort Auscultation: clear to auscultation bilaterally Cardio Rate: regular rate Rhythm: regular rhythm GI Inspection: non-distended Palpation: soft and nontender Skin General: no rashes or lesions noted Neuro General: patient alert and patient oriented x3 Extrem General: full ROM Psych Appearance: grossly normal Mental Status: mental status grossly normal Assessment and Plan Assessment and Plan (1) Biliary dyskinesia: Status: Acute Plan: The patient had workup at [facility]. This included a CT scan and an ultrasound and a HIDA scan. CT and ultrasound did not show any gallstones but there was pericholecystic fluid and concern for chronic cholecystitis. He had a HIDA showed a low ejection fraction at 30% also concerning for chronic cholecystitis versus biliary dyskinesia. Patient was scheduled for surgery and then he lost his job and his insurance and now with his new insurance his other hospital does not take it so he came here for surgery. I discussed this with him in detail. I discussed the procedure in detail with the patient. I discussed the risks, benefits, and alternatives of the procedure. I discussed the risks including but not limited to bleeding, infection, injury to surrounding organs such as the liver, bile duct, bowels. I did discuss the possibility of having to convert to an open procedure as well as the possibility that if any injuries occurred this may necessitate further surgery at a tertiary care center. Shoaib Schumacher MD Pager: [facility] [address] [place] [address], [address] [place] [address] Office: I have examined the patient and the H&P has been reviewed. There are no clinical changes since date of exam.
[2023-08-02] MEDS: Cefotetan 2 GM in 0.9% NS 100 ML IV (08:27)
--- NOTE | 2023-08-02 08:35 | GALL_PTH ---
PATHOLOGY RESULTS PATIENT: ELEANOR AGU[place]AR [place] [facility] [id number] AGE/SX: 22/M ROOM: RE08/02/[address]: Dr. Shoaib Schumacher MD : 2000 BED: DIS: 08/02/2023 SPEC #: [id number] RECD: 08/02/23 11:59 STATUS: IZZY HOOKER #: [id number] SHIRIN: 08/02/23 08:[address]: Shoaib Schumacher DEPT: SURGICAL PATHOLOGY RECD BY: Heather Robins ENTERED: 08/02/23 12:00 SP TYPE: LIZETH LAWTON DR: Dr. Kushal Russo DO Tissues: Gallbladder, NOS Procedures: Surgery Specimen Level III HEADER OPERATION: Laparoscopic cholecystectomy with IOC PRE-OP DIAGNOSIS: Biliary dyskinesia TISSUE SUBMITTED: Gallbladder MICROSCOPIC DIAGNOSIS Gallbladder, cholecystectomy: Mild chronic cholecystitis. See comment. BECKY:vikash 08/03/2023 COMMENT No stones are identified in the container or in the gallbladder. MICROSCOPIC DESCRIPTION Slides are reviewed. GROSS DESCRIPTION Received is one container labeled with the patient's name and designated gallbladder. The specimen consists of a gallbladder measuring 7.0 cm in length and up to 2.5 cm in diameter. The external surface is pink-peterson, smooth and glistening for the most part. Focally it is granular, hemorrhagic and contains cautery artifact. The gallbladder contains green-yellow mucoid bile. No stones are identified in the container or in the gallbladder. The mucosa is bile-stained and without any mass lesions. The gallbladder wall measures 0.1 cm in thickness. Oven Laborer sections from the gallbladder and the cystic duct are submitted in one cassette. / SJ:vikash 08/02/2023 TC:3 CPT: 62145
--- NOTE | 2023-08-02 08:45 | RAD_ITS ---
STUDY: INTRAOPERATIVE CHOLANGIOGRAM. REASON FOR EXAM: Male, 22 years old. Laparoscopic cholecystectomy FLUOROSCOPY TIME (if supplied): ( 8 seconds ) minutes/seconds. 1.57 mGy TECHNIQUE: An intraoperative cholangiogram was performed by the surgeon. Imaging was submitted. COMPARISON: None. FINDINGS: The visualized intra and extrahepatic biliary ducts are unremarkable. RAD/Cholangiogram/ O R,Initial IMPRESSION: Unremarkable intraoperative cholangiogram. Electronically Signed: Dale Samuels MD at 11:23 EST ,
[2023-08-02] MEDS: Bupiv/Epi 0.25% 30 ML Vial (09:06)
--- NOTE | 2023-08-02 09:28 | PCM.OPRPT ---
Report of Operation Date of Procedure: 08/02/23 Pre-Operative Diagnosis: Biliary dyskinesia Post-Operative Diagnosis: Biliary dyskinesia Surgery/Procedure Performed:: Laparoscopic cholecystectomy with cholangiograms Type of Anesthesia: General/Regional Specimen's removed: Gallbladder Estimated Blood Loss (mL): 10 Description of Procedure: After obtaining informed consent patient was brought back to the operating room. General anesthesia was induced. The abdomen was prepped and draped in usual sterile fashion. A small midline incision was made superior to the umbilicus and deepened to the level of fascia. The fascia was elevated and incised. Next the peritoneum was elevated and incised in the same fashion. Finger sweep was performed and the Solis trocar was placed into the abdomen. The balloon was inflated. The abdomen was inflated to 15 mmHg. Next a camera was introduced into the abdomen and the abdomen was inspected. Next under direct visualization three 5-mm ports were placed one subxiphoid and 2 subcostal. Next the gallbladder was elevated and retracted toward the right shoulder. The peritoneum was stripped from the gallbladder. The infundibulum was located and retracted laterally. Next the triangle of Calot was dissected and the cystic duct and cystic artery were identified. Cholangiograms were performed. The Matthews clamp was used to clamp across the infundibulum and the catheter needle was inserted into the gallbladder. Under fluoroscopy contrast was instilled into the gallbladder and the common duct, cystic duct as well as proximal hepatic ducts were identified. There was good filling of the duodenum. There were no filling defects noted in the common bile duct. The clamp was removed as well as the needle and the infundibulum was grasped once more. Three hemolock clips were placed across the cystic duct. The cystic duct was then divided leaving 2 clips on the stump. The cystic artery was clipped and divided in the same fashion. The hook cautery was then used to take the gallbladder off of the gallbladder bed. Hemostasis was obtained. Gallbladder fossa was irrigated and no active bleeding or bile leakage was noted. Next the camera was introduced in the subxiphoid port. An Endopouch bag was placed through the umbilical port and the gallbladder was placed into it. The gallbladder was then removed through the umbilical incision. The camera was then reinserted through the umbilical port. The gallbladder fossa was inspected once more and noted to be hemostatic with no leaking bile. The abdomen was suctioned dry. The 5 mm ports were removed under direct visualization. The umbilical port was then removed and the air was removed from the abdomen. Next using an 0 Vicryl suture the umbilical fascia was closed in a [id number] fashion. The umbilical port site was irrigated local anesthetic was administered to all the incisions. All the incisions were closed with interrupted subcuticular 4-0 Monocryl sutures followed by Steri-Strips and dressings. The patient was awoken and taken to PACU in stable condition. Admit VTE Documentation VTE Mechan Device Prophylaxis: SCD's
--- NOTE | 2023-08-02 09:29 | DCINST_ITS ---
Discharge Instructions Procedure Gallbladder Diet Discharge Diet: Light diet - advance as tolerated Activity Discharge Activity: May Not Drive (for 2-3 days or while taking narcotic pain medications.) and - (Do not drive, work heavy equipment or sign legal documents for 24 hours.) May shower in (days): 1 Lifting Restrictions: 20 lbs for 2 weeks Additional Activity Instructions:: Pain medication may cause nausea. You should typically eat light foods as you take your pain medications. Pain medication may also cause constipation. If this is a problem for you, please discuss with your doctor. Dressing / Incision Call your doctor if your incision/area has: Continuous Slow Oozing, Sudden Increased Bleeding, Increased Pain/ Swelling, Increased Redness and Foul Smelling Discharge Call your doctor if you observe: Fever of 101 or Higher Suture Line Care: Avoid Pulling/Pushing and Avoid Pinching/Bending Remove Dressing in: 2 days Additional Dressing/Incision Instructions:: Leave operative bandaids on for 2 days. When you remove dressing, remove Steri-Strips in 7 to 10 days. Use ibuprofen and Tylenol alternating, oxycodone for breakthrough pain. Follow Up Care Please Follow Up With: Shoaib Schumacher MD When: Please call to schedule 2 week follow up appointment. [phone] Test Results: Test results from this visit will be discussed in further detail at your follow- up appointment, if applicable. Discharge Plan Admission Attending Provider: Shoaib Schumacher Primary Care Provider: Kushal Russo Discharge Orders/Prescriptions Prescriptions: New oxycodone 5 mg Tablet 5 - 10 mg PO Q4H PRN PRN (Reason: Pain Score 4-10/10) 5 Days Qty: 20 0RF Referrals / Follow Up: Kushal Russo DO [Primary Care Provider] - Disposition Disposition (needs filled in before D/C Order can be placed): Home, Self Care
[2023-08-02] MEDS: Acetaminophen 325 MG Tablet 650 MG PO (11:01)
== END 2023-08-02 11:10 | disposition home or self-care (01) ==
LOC: SDC 06:53 → AC 06:54
PROVIDERS: PCP Student in an Organized Health Care Education/Training Program; Referring Provider Student in an Organized Health Care Education/Training Program; Visit Provider Surgery
PROC: (CPT 47610; principal; 2023-08-02 08:15)
DX: K81.1 Chronic cholecystitis (principal); K82.8 Other specified diseases of gallbladder; R11.2 Nausea with vomiting, unspecified
CPT/HCPCS: 47563; 00790; 74300; 76000; 88304; 93005; J7120; J2405